=== PATIENT | male | born 1985 | race Caucasian/White ===

== ENCOUNTER 2016-08-16 11:00 | Inpatient (IN) | payer BC ==
[~2016-08-16] VITALS: Ht 182.9 cm; Wt 59.1 kg
--- NOTE | ~2016-08-16 | ECHO ---
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 Summary Technically difficult exam due to patient position and poor acoustical windows. The estimated left ventricular ejection fraction is 60-65%. Mild concentric left ventricular hypertrophy. Diastolic assessment appears to be normal relaxation. Procedure Type of Study TTE procedure:2D Echocardiogram, Echo Limited w/o Contrast. Procedure Date Date: 08/16/2016 Start: 12:05 PM Study Location: Inpatient Portable Technical Quality: Limited visualization due to poor acoustical window. Indications:Post Code. Appropriate Use Criteria: 9 Patient Status: STAT HR: 109 bpm BP: 153/106 mmHg M-Mode/2D Measurements LV Diastolic Dimension: 3.32 cm LV Systolic Dimension: 2.36 cm LV Septum Diastolic: 1.13 cm LV PW Diastolic: 1.03 cm AO Root Dimension: 2.3 cm LVOT VTI: 11.1 cm RV Base: 2.96 cm RV Mid: 2.57 cm RV Length: 5.22 cm Doppler Measurements AV Peak Velocity: 1.08 m/s MV Peak E-Wave: 0.64 m/s AV Peak Gradient: 4.67 mmHg MV Peak A-Wave: 0.59 m/s AV Mean Gradient: 3 mmHg MV E/A Ratio: 1.09 LVOT Peak Velocity: 0.77 m/s TR Velocity:1.22 m/s MV Deceleration Time: 137 msec TR Gradient:5.95 mmHg Estimated RAP:5 mmHg Estimated PASP: 10.95 mmHg Estimated RVSP: 11 mmHg A' Septal Velocity: 0.06 m/s E' Septal Velocity: 0.09 m/s A' Lateral Velocity: 0.06 m/s E' Lateral Velocity: 0.08 m/s Findings Left Ventricle Mild concentric left ventricular hypertrophy. Diastolic assessment appears to be normal relaxation. Right Ventricle Normal right ventricle structure and function. Left Atrium Left atrium appears normal in size Right Atrium Right atrium appears to be normal in size. IVC measures 1.18 cm with inspiratory collapse. Mitral Valve Normal appearing mitral valve structure and function. Aortic Valve Normal appearing aortic valve structure and function. Tricuspid Valve Normal appearing tricuspid valve. Trivial tricuspid regurgitation by color Doppler. Pulmonic Valve Pulmonic valve is not well seen. Pericardial Effusion No evidence of pericardial effusion. Miscellaneous Visualized portions of the aortic root and ascending aorta appear normal in size. Pleural Effusion No evidence of pleural effusion. Contractility Score LV regional wall motion:(0-Non visualized 1-Normal 2-Hypokinesis 3-Akinesis 4-Dyskinesis 5-Aneurysm) Signature dtt: Carmella Carias dtd: 08/16/16 5596 Physician Self Edit
--- NOTE | ~2016-08-16 | HP ---
PATIENT'S NAME: CINDY PACHECO [facility] AGE: 31 Y [address] ROOM: [place] [address] LOCATION: [facility] ADMIT DATE: 08/16/2016 History & Physical DISCHARGE DATE: 08/17/2016 FAMILY PHYSICIAN: EMY OZUNA ATTENDING PHYSICIAN: Johnathan Melton CORRECTED WORK TYPE 09/17/16 AO DATE OF SERVICE: 08/16/2016 REASON FOR CONSULTATION: Medical management while in the intensive care unit. HISTORY OF PRESENT ILLNESS: Mr. Pacheco is a 31-year-old gentleman, who presented after being from an outside hospital, after being found down at his workplace with reported hemoptysis, when 911 called and transported to his local hospital facility. There, at which time, the patient did have respiratory arrest and cardiac arrest where a CPR was begun. The patient had episodes of cardiac compression as well as defibrillation from his cardiac arrhythmias on multiple attempts including full array of ACLS drugs and given a large dose of a gram of Solu- Medrol for the patient's bronchoalveolar hemorrhage. The patient then was transported by [facility] to the [facility] for further evaluation and more definitive care. PAST MEDICAL HISTORY: Unable to be determined as the patient is unable to provide any history. SOCIAL HISTORY: Unable to determine. FAMILY HISTORY: Unable to determine. REVIEW OF SYSTEMS: Not able to determine. PHYSICAL EXAMINATION: GENERAL: The patient is intubated and sedated young man, appearing his stated age. NEUROLOGIC: The patient's pupils are dilated bilaterally, unreactive. The patient is intubated and unable to carry out a motor exam. HEART: Regular rate and rhythm. No murmurs, gallops, or rubs could be noted on exam. CHEST: His chest was coarse bilaterally. ABDOMEN: Soft, nontender, and nondistended. EXTREMITIES: Show no signs of clubbing, cyanosis, or edema. PATIENT'S NAME: CINDY PACHECO [facility] AGE: 31 Y [address] ROOM: [place] [address] LOCATION: GICU ADMIT DATE: 08/16/2016 History & Physical DISCHARGE DATE: 08/17/2016 FAMILY PHYSICIAN: EMY OZUNA ATTENDING PHYSICIAN: Geronimo,Johnathan A HEENT: Head normocephalic and atraumatic. Ears: TMs bilaterally noted. His uvula was midline with an endotracheal tube in place. IMPRESSION: This is a 31-year-old gentleman with; 1. Postcardiac arrest. 2. Acute hypoxemic respiratory failure. 3. Acute alveolar hemorrhage. 4. Diabetic ketoacidosis. 5. Increased intracerebral pressure. PLAN: Emergent consultation with Neurological Services, however, the patient's prognosis at this time appears to be grim given this patient's presentation postcardiac arrest, likely increased cerebral edema secondary to his diabetic ketoacidosis as well as anoxic brain injury. However, given his young age, I will emergently consult Neurologic Surgery as well as Teleneurology. The patient was also given IV mannitol as well as hypertonic saline boluses. Lastly, we will update the family, however, the patient is very unlikely to survive with poor prognosis. MD SYMONE SEGAL/win /[id number] CORRECTED WORK TYPE 09/17/16 AO D: [id number] T: [id number] HISTORY & PHYSICAL
--- NOTE | ~2016-08-16 | CON ---
PATIENT'S NAME: CINDY PACHECO [facility] AGE: 31 Y [address] ROOM: [place] [address] LOCATION: [facility] ADMIT DATE: 08/16/2016 Consultation DISCHARGE DATE: FAMILY PHYSICIAN: , UNKNOWN ATTENDING PHYSICIAN: JANEE SANCHEZ DATE OF CONSULTATION: 08/16/2016 REASON FOR CONSULTATION: Increased intracranial pressure. PATIENT IDENTIFICATION: Cindy Pacheco is a 31-year-old male. PRESENTING COMPLAINT: Decreased level of consciousness. HISTORY OF PRESENT ILLNESS: History was obtained from the patient's chart as the patient himself is unable to provide a history. According to the records, the patient was at work today. He started coughing up blood about 0815 hours. Shortly after that, he was walking and passed out. A co-worker caught him and placed him on the ground and 911 was called. By the time, the paramedics saw the patient, at 0820 hours, he was unresponsive and did not have a pulse or any breathing. They started CPR. His pupils were fixed and dilated at this time. The patient was transferred to [facility] for further treatment. He was seen initially by Dr. Sanchez and I was subsequently consulted to see the patient. PAST MEDICAL HISTORY: It appears the patient is a poorly-controlled diabetic type 1. SOCIAL HISTORY: The patient is and has children. He works at a [employer] facility. FAMILY HISTORY: There is no family history relevant to present symptoms. REVIEW OF SYSTEMS: Unable to carry out a review of systems as the patient is not responsive. PHYSICAL EXAMINATION: GENERAL: On examination, the patient is a young man who was seen in the ICU, PATIENT'S NAME: CINDY PACHECO [facility] AGE: 31 Y [address] ROOM: [place] [address] LOCATION: [facility] ADMIT DATE: 08/16/2016 Consultation DISCHARGE DATE: FAMILY PHYSICIAN: PHYSICIAN, UNKNOWN ATTENDING PHYSICIAN: JANEE SANCHEZ already intubated. NEUROLOGICAL: Pupils are dilated bilaterally and unreactive. The patient is intubated. Motor examination, unable to carry out. CARDIOVASCULAR: Heart sounds are present. RESPIRATORY: The patient is on a ventilator. EXTREMITIES: No cyanosis or clubbing. HEENT: His head is atraumatic. Eyes and ears: No evidence of trauma. REVIEW OF IMAGING STUDIES: The patient has had a head CT scan performed. A CT scan shows a very swollen brain with effacement of the basal cisterns and loss of terrell-white differentiation. There is no hemorrhage or tumor. IMPRESSION: A 31-year-old gentleman with history of type 1 diabetes, collapsed at work today. Imaging studies show evidence of increased intracranial pressure. MEDICAL DECISION MAKING: I spoke with the patient's family members and we discussed treatment options. The discussion included possible ventriculostomy to try and lower the patient's increased intracranial pressure, but there was no guarantee that this would help him. The patient's family opted for everything to be tried even though there were no guarantees. The patient was therefore taken to the operating room and had a ventriculostomy catheter placed. His care will be continued in the intensive care unit after the procedure. MD THANH DIXON/modl /[id number] d: 08/16/16 2247 t: 08/22/16 1555, CONSULTATION REPORT
--- NOTE | ~2016-08-16 | OR ---
PATIENT'S NAME: CINDY ARGUETA [facility] AGE: 31 Y [address] ROOM: [place] [address] LOCATION: [facility] ADMIT DATE: 08/16/2016 OR/Procedure Report DISCHARGE DATE: FAMILY PHYSICIAN: PHYSICIAN, UNKNOWN ATTENDING PHYSICIAN: JANEE SANCHEZ SURGEON: Raquel Aburto MD HOOP MAKER: Randa Gabriel. DATE OF PROCEDURE: 08/16/2016 PREOPERATIVE DIAGNOSIS: Increased intracranial pressure. POSTOPERATIVE DIAGNOSIS: Increased intracranial pressure. PROCEDURE PERFORMED: Placement of right-sided ventriculostomy for management of increased intracranial pressure. ANESTHESIA: General. ANESTHESIA PROVIDER: Janee Sanchez MD. HISTORY: The patient is a 31-year-old gentleman who collapsed while at work. He went into cardiac arrest and was resuscitated. His pulse came back. The patient, however, remained unresponsive. He was intubated and transferred to [facility]. Imaging studies showed extremely high pressure in his brain with loss of terrell-white differentiation and effacement of the basal cisterns. The patient is a known diabetic and his blood sugar was extremely high. We discussed the situation with the patient's family members and explained to them that the patient's intracranial pressure was very high. We mentioned the possibility of using a ventricular catheter to try and decrease intracranial pressure by draining of spinal fluid. We explained to the family members that there was no guarantee that this would help the situation and the patient may still be unresponsive even after the drain was placed. Family wished for us to try anything possible. With this in mind, the patient was scheduled for the procedure. I went over the benefits, risks, and alternatives with the family members. PROCEDURE IN DETAIL: In the operating room, the patient was placed in a supine position. He was already intubated, and anesthesia was induced. The hair was clipped over the right side of his scalp. The entry point for the ventriculostomy was marked out at 12.5 cm behind the right midpupillary line. The whole area was infiltrated with local anesthesia. The incision was opened with a #15 blade. Self-retaining retractor was placed. The twist drill was used to drill a hole through the skull. The dura was coagulated. The PATIENT'S NAME: CINDY ARGUETA [facility] AGE: 31 Y [address] ROOM: [address] [address] LOCATION: [facility] ADMIT DATE: 08/16/2016 OR/Procedure Report DISCHARGE DATE: FAMILY PHYSICIAN: PHYSICIAN, UNKNOWN ATTENDING PHYSICIAN: JANEE SANCHEZ A ventricular catheter was then tunneled under the scalp with a trocar. The catheter was brought out at the entry point. The catheter was inserted through the brain into the ventricles. Access was obtained at first try. Spinal fluid came out with a flash of pressure. It did not last very long and the fluid stopped flowing. I adjusted the catheter a few times, and there was no further flow. I noticed that the tip of the catheter was being filled up with brain material. The catheter was removed and flushed and I reinserted it. Once again, the catheter tip became rapidly closed with brain material. It would appear that the brain pressure was so high that it filled up the catheter tip and there was no way that CSF could come out. The monitor was used to measure the intracranial pressure, and we had anything between 70 and 90 cm of water on occasion. At this point, I felt that it was not possible to maintain any type of ventricular flow. The catheter was left in place. The incision was closed with appropriate suture materials. The catheter was secured to the scalp. A sterile dressing was applied. The patient was brought back to the intensive care for continued care. I have spoken with the family members and informed them that the brain pressure was so high that it is not possible for brain cells to survive since the blood flow to the brain cannot overcome such a high intracranial pressure. MD CHACHA DIXONO/modl /[id number] d: 08/16/162229 t: 08/22/16 1552, OPERATIVE SUMMARY
--- NOTE | ~2016-08-16 | DS ---
PATIENT'S NAME: CINDY ARGUETA [facility] AGE: 31 Y [address] ROOM: [place] [address] LOCATION: GICU ADMIT DATE: 08/16/2016 Discharge Summary DISCHARGE DATE: 08/17/2016 FAMILY PHYSICIAN: EMY OZUNA ATTENDING PHYSICIAN: Johnathan Melton CORRECTED WORK TYPE 09/17/16 AO NOTE. CONSULTATIONS: 1. Tele Neurology. 2. Neurosurgery. BRIEF HOSPITAL COURSE: The patient is a 31-year-old gentleman, who presented from an outside hospital after extensive CPR after being found down at work and with respiratory cardiac arrest. He was transported to [facility] for more definitive care. On his presentation here, the patient with fixed and dilated pupils and an essentially nonresponsive neurologic exam. He was taken to the operating room, where a ventriculostomy was placed by Neurosurgery. The patient was found to have significantly elevated intracranial pressures, not compatible with life. The patient was taken back to the ICU overnight, and a exam was performed in the morning. Following the brain- exam, the patient was found to be brain with time of at 12:59 p.m. on 08/17/2016. The patient was withdrawn from the ventilator as well as all his ICU intravenous medications and the patient after cardiac standstill was taken for autopsy by central pathology services. PRELIMINARY DIAGNOSES: 1. Bilateral pulmonary cavitary lesions with extensive associated hemorrhage and consolidation of the right lung. 2. History of cerebral edema. FINAL DIAGNOSES: 1. Anoxic brain injury. 2. Bronchioalveolar hemorrhage. 3. Diabetes mellitus, type 1. 4. Diabetic ketoacidosis. 5. Increased intracerebral hypertension. MD SYMONE SEGAL/win PATIENT'S NAME: CINDY ARGUETA [facility] AGE: 31 Y [address] ROOM: [place] [address] LOCATION: GICU ADMIT DATE: 08/16/2016 Discharge Summary DISCHARGE DATE: 08/17/2016 FAMILY PHYSICIAN: EMY OZUNA ATTENDING PHYSICIAN: Johnathan Melton /[id number] CORRECTED WORK TYPE 09/17/16 AO d: 09/13/16 2301 t: 10/02/16 1436, DISCHARGE SUMMARY
[2016-08-16 13:04] LABS: HEMATOCRIT 34.9 % (37.0-53.0); HEMOGLOBIN 11.1 g/dL (12.0-17.0); MCH 28.8 pg (27.0-34.0); MCHC 31.8 gm/dL (32.0-36.5); MCV 90.6 fl (83.0-98.0); MPV 8.5 fl (9.4-12.4); PLATELET COUNT 705 K/uL (150-450); RBC 3.85 M/uL (4.00-6.00); RDW-CV 12.7 % (11.9-14.6)
[2016-08-16 13:13] LABS: WBC 20.3 K/uL (4.0-11.0)
[2016-08-16 13:31] LABS: ALT 223 IU/L (12-78); BLOOD UREA NITROGEN 16 mg/dL (6-24); CALCIUM 7.6 mg/dL (8.5-10.5); CHLORIDE 103 mMol/L (96-110); ESTIMATED GFR (MDRD EQUATION) > 60; PHOSPHORUS 7.2 mg/dL (2.5-4.9); SODIUM 137 mMol/L (135-145); TOTAL BILIRUBIN 1.3 mg/dL (0.0-1.5); TOTAL PROTEIN 7.1 g/dL (6.0-8.4)
[2016-08-16 13:34] LABS: ANION GAP 23.2 (10.0-19.0); CO2 15 mMol/L (22-32)
[2016-08-16 13:35] LABS: ALK PHOS 908 IU/L (33-138); AST 645 IU/L (10-40); CPK 394 IU/L (35-332); MAGNESIUM 2.3 mg/dL (1.3-2.6)
[2016-08-16 13:37] LABS: BICARBONATE 18.1 mmol/L (18.0-23.0); PCO2 52 mmHg (35-45); PO2 293 mmHg (80-90)
[2016-08-16 13:44] LABS: POTASSIUM 4.2 mMol/L (3.7-5.1)
[2016-08-16 13:45] LABS: ABSOLUTE NEUTROPHIL CT (ANC) 17.7 K/uL (1.4-9.0); BANDED NEUTROPHIL # 3.5 K/uL (0.0-0.1); BANDED NEUTROPHILS % 17 %; LYMPHOCYTE % 10 %; MONOCYTE # 0.4 K/uL (0.0-1.0); SEGMENTED NEUTROPHIL # 14.2 K/uL (1.4-9.0); SEGMENTED NEUTROPHIL % 70 %
[2016-08-16 13:55] LABS: BILIRUBIN URINE NEGATIVE (NEGATIVE); BLOOD URINE 150 /UL (NEGATIVE); COLOR URINE YELLOW (YELLOW); GLUCOSE URINE 1000 mg/dL (NEGATIVE); KETONE URINE NEGATIVE (NEGATIVE); LEUKOCYTES URINE NEGATIVE /UL (NEGATIVE); NITRITE URINE NEGATIVE (NEGATIVE); PROTEIN URINE 30 mg/dL (NEGATIVE); TURBIDITY URINE CLEAR (CLEAR); UROBILINOGEN URINE NORMAL (NORMAL)
[2016-08-16 13:57] LABS: EPITHELIAL URINE NEGATIVE #/HPF (NEGATIVE); RBC URINE 20-50 #/HPF (NEGATIVE); WBC URINE NEGATIVE #/HPF (NEGATIVE)
[2016-08-16 13:58] LABS: BACTERIA URINE NEGATIVE (NEGATIVE)
[2016-08-16 14:11] LABS: AMPHETAMINE NEGATIVE (NEGATIVE); BARBITURATE NEGATIVE (NEGATIVE); COCAINE NEGATIVE (NEGATIVE); OPIATES NEGATIVE (NEGATIVE)
[2016-08-16] MEDS ORDERED: LEXAPRO10 MG PO (15:06)
[2016-08-16] MEDS ORDERED: K-TAB 10MEQ10 MEQ PO (15:06)
[2016-08-16] MEDS ORDERED: PROVENTIL OR V6.7 GM INH (15:07)
[2016-08-16] MEDS ORDERED: LANTUS (IN100 UNIT/M SUB-Q (15:08)
[2016-08-16] MEDS ORDERED: HUMALOG100 UNIT/1 SUB-Q (15:09)
[2016-08-16 16:11] LABS: BLOOD UREA NITROGEN 18 mg/dL (6-24); CALCIUM 7.6 mg/dL (8.5-10.5); CHLORIDE 113 mMol/L (96-110); CO2 19 mMol/L (22-32); CREATININE 0.9 mg/dL (0.6-1.3); ESTIMATED GFR (MDRD EQUATION) > 60
[2016-08-16 16:13] LABS: SODIUM 145 mMol/L (135-145)
[2016-08-16 17:35] LABS: BLOOD UREA NITROGEN 17 mg/dL (6-24); CALCIUM 7.5 mg/dL (8.5-10.5); CO2 22 mMol/L (22-32); ESTIMATED GFR (MDRD EQUATION) > 60; POTASSIUM 4.5 mMol/L (3.7-5.1)
[2016-08-16 17:40] LABS: ANION GAP 13.5 (10.0-19.0); CHLORIDE 124 mMol/L (96-110); SODIUM 155 mMol/L (135-145)
--- NOTE | 2016-08-16 19:03 | NUR ---
Significant Event: Patient admitted at 1204. Intubated without sedation. No withdraw in any extremity. No gag or spontaneous cough noted. Pupils are 5 and fixed. Overbreathes set vent rate at times. ST with HR 150's. SBP 90's-140's. Levophed gtt started during surgery and turned off at 1730. To keep Map >65. Went to CT today and then to OR for ICP/ventric placement. ICP's in surgery reported to be 80-90's. Post op ICP's have been 50-80's. CPP 18-25. OG tube placed, dark bloody drainage output when first admitted. And dark blood tinged drainage from nostrils when first admitted. Hypoactive bowel sounds on last assessment. NPO. Afebrile. IV insulin gtt, goal to decrease blood sugar 50-100/h til goal of 250. hourly accuchecks.NORS has been notified. Follow up: Waiting on family to make decisions on patients plan of care. monitor bmp q2h
[2016-08-16 20:06] LABS: BLOOD UREA NITROGEN 16 mg/dL (6-24); CALCIUM 7.6 mg/dL (8.5-10.5); CO2 22 mMol/L (22-32); ESTIMATED GFR (MDRD EQUATION) > 60; POTASSIUM 4.9 mMol/L (3.7-5.1)
[2016-08-16 20:07] LABS: ANION GAP 12.9 (10.0-19.0); CHLORIDE 130 mMol/L (96-110); SODIUM 160 mMol/L (135-145)
[2016-08-16 21:30] LABS: BLOOD UREA NITROGEN 16 mg/dL (6-24); CALCIUM 8.1 mg/dL (8.5-10.5); CO2 20 mMol/L (22-32); CREATININE 1.1 mg/dL (0.6-1.3); ESTIMATED GFR (MDRD EQUATION) > 60; POTASSIUM 4.9 mMol/L (3.7-5.1)
[2016-08-16 21:34] LABS: ANION GAP 14.9 (10.0-19.0); CHLORIDE 133 mMol/L (96-110); SODIUM 163 mMol/L (135-145)
[2016-08-17 02:21] LABS: BLOOD UREA NITROGEN 16 mg/dL (6-24); CALCIUM 8.4 mg/dL (8.5-10.5); CO2 20 mMol/L (22-32); CREATININE 0.9 mg/dL (0.6-1.3); ESTIMATED GFR (MDRD EQUATION) > 60
[2016-08-17 02:27] LABS: CHLORIDE 131 mMol/L (96-110); SODIUM 162 mMol/L (135-145)
[2016-08-17 05:18] LABS: BICARBONATE 21.6 mmol/L (18.0-23.0); PCO2 47 mmHg (35-45); PO2 87 mmHg (80-90)
--- NOTE | 2016-08-17 05:21 | NUR ---
Patient has been weaned from an FIO2 of 100% down to an FIO2 of 40%. End tidal has ran 30-42. He is breathing along with the vent with no over breathing noted. Breath sounds are coarse through out with moderate amounts of thick, bloody secretions being suctioned out. Still coarse after suctioning. Will continue to monitor patient.
[2016-08-17 05:39] LABS: ALT 138 IU/L (12-78); AST 114 IU/L (10-40); BLOOD UREA NITROGEN 17 mg/dL (6-24); CALCIUM 7.6 mg/dL (8.5-10.5); CO2 22 mMol/L (22-32); CREATININE 0.7 mg/dL (0.6-1.3); ESTIMATED GFR (MDRD EQUATION) > 60; MAGNESIUM 1.9 mg/dL (1.3-2.6); PHOSPHORUS 3.3 mg/dL (2.5-4.9); POTASSIUM 3.9 mMol/L (3.7-5.1); TOTAL PROTEIN 5.6 g/dL (6.0-8.4)
[2016-08-17 05:41] LABS: ALBUMIN 1.6 gm/dL (3.5-5.0); ALK PHOS 414 IU/L (33-138); ANION GAP 10.9 (10.0-19.0); CHLORIDE 129 mMol/L (96-110); SODIUM 158 mMol/L (135-145); TOTAL BILIRUBIN 0.3 mg/dL (0.0-1.5)
[2016-08-17 05:44] LABS: HEMOGLOBIN 8.3 g/dL (12.0-17.0); MCV 91.9 fl (83.0-98.0); MPV 8.5 fl (9.4-12.4); RDW-CV 13.3 % (11.9-14.6)
[2016-08-17 05:49] LABS: HEMATOCRIT 26.1 % (37.0-53.0); MCH 29.2 pg (27.0-34.0); MCHC 31.8 gm/dL (32.0-36.5); PLATELET COUNT 429 K/uL (150-450); RBC 2.84 M/uL (4.00-6.00)
--- NOTE | 2016-08-17 05:52 | NUR ---
Significant Event: See neuro assessment for details. ST, BP labile with levophed as high at 0.8mcg/kg/min this shift, currently at 0.2mcg/kg/min. HR 100-155. Lung sounds coarse, does not overbreathe set rate. No cough present. Bowel sounds rare, OG hooked to flush for q4h flushes. Suazo intact, polyuric. No new or worsening skin issues. ICP 75 and greater. Afebrile. Follow up:Brain testing today.
[2016-08-17 07:30] LABS: ABSOLUTE NEUTROPHIL CT (ANC) 20.7 K/uL (1.4-9.0); BANDED NEUTROPHIL # 10.8 K/uL (0.0-0.1); BANDED NEUTROPHILS % 49 %; LYMPHOCYTE # 0.9 K/uL (0.8-4.0); LYMPHOCYTE % 4 %; MONOCYTE # 0.4 K/uL (0.0-1.0); SEGMENTED NEUTROPHIL # 9.9 K/uL (1.4-9.0); SEGMENTED NEUTROPHIL % 45 %
[2016-08-17 07:51] LABS: BLOOD UREA NITROGEN 19 mg/dL (6-24); CALCIUM 7.5 mg/dL (8.5-10.5); CO2 22 mMol/L (22-32); CREATININE 0.7 mg/dL (0.6-1.3); ESTIMATED GFR (MDRD EQUATION) > 60; POTASSIUM 3.9 mMol/L (3.7-5.1)
[2016-08-17 07:52] LABS: ANION GAP 11.9 (10.0-19.0); CHLORIDE 125 mMol/L (96-110); SODIUM 155 mMol/L (135-145)
--- NOTE | 2016-08-17 09:42 | NUR ---
Diabetes consult: Received referral on this patient due to his admission with DKA and poorly controlled diabetes. Currently blood sugars are well controlled on the insulin drip. Patient is critical at this point. Will continue to follow blood sugars trends and assist as needed.
--- NOTE | 2016-08-17 12:29 | NUR ---
DIET CONSULT RECEIVED, PER ROUTINE DIABETIC KETOACIDOSIS ORDERS. DIET ED DEFERRED D/T CURRENT MEDICAL STATUS.
[2016-08-17 12:50] LABS: BICARBONATE 22.2 mmol/L (18.0-23.0); PCO2 35 mmHg (35-45); PO2 365 mmHg (80-90)
--- NOTE | 2016-08-17 12:55 | NUR ---
Occupational Therapy Note: OT to hold therapy at this date as pt is not appropriate at this time per RN. OT will check back tomorrow as appropriate. Darlyn Galvan, OTR/L
[2016-08-17 13:09] LABS: BICARBONATE 25.4 mmol/L (18.0-23.0); PO2 358 mmHg (80-90)
[2016-08-17 13:12] LABS: PCO2 80 mmHg (35-45)
--- NOTE | 2016-08-17 13:47 | NUR ---
Pt extubated to comfort cares at 1335 to room air
--- NOTE | 2016-08-17 14:01 | NUR ---
Call from pipe assembly worker Brian on ICU with questions re:family wanting to have an autopsy done on Goran after he passes away. I came down to the floor, CLAIRE Vanessa was by his room and gave me verbal update on the patient. They are planning to go brain testing at 1200. If the prognosis isn't good, then family is planning to withdraw cares at that time. Scotty and nursing were wanting to know, if family was requesting the autopsy, would they have to pay for it. I went back and reviewed [facility] policy on autopsy requests, I referred to policystat ID [id number]. Per this policy, "There is no charge by the hospital or the pathologist for an autopsy performed on hospitalized and/or on arrival (doa) patients that are ordered by primary physicians and/or the projector booth operator. 1. If the family/next of kin asks for an autopsy after the primary physician or projector booth operator has indicated no desire to autopsy, a charge will be assesed." I printed this out and left a copy of it with the primary care RN and also reviewed it with all parties involved. I did call down to Lab, talked with Harshal, just to check on how much it would be if MD wouldn't think it was needed so I could share this with family, but before I was told the minor, RN informed me that MD would be ordering it so family shouldn't be responsible for the cost of it. I also phoned boiling house oiler, Sadaf, to make sure that Bernard' local patent examiner didn't need to be notified of his . Per Sadaf, if there was no foul play or reason to think that it was suspicious then we didn't need to notify his projector booth operator. I updated primary care RN, pipe assembly worker Brian and CLAIRE Vanessa to all of the above. Let them know if they had any further questions, to please contact me and I would be happy to help them out. Will contiue to follow and assist.
--- NOTE | 2016-08-17 14:40 | NUR ---
Significant Event:NORS had family meeting this morning and family declined oragn donation. Father stated that he had conversations with the patient egarding donation and patient stated that he did not want to do it. Dr Chandler at bedside at 1235 and performed the brain criteria assessement with family at the bedside.Assessment was done at approximately 1258. Brain was pronounced 08/17/16 at 1259, Dr. Chandler notified family. Family spent some time at bedside and then notified us at 1325 that they were ready for the withdrawl process. AT 1330 Darinel, RT, Elsa RN and Rasheeda RN were at bedside, just all IV medications off, ICP monitor off,ventilator shut off and ET tube pulled. AT 1350 telemetry notified of asystole. Elsa RN and Rasheeda RN verified no heartbeat/pulse. Patient did not have any belonings at bedside. See brain form and DR. Chandler notes/orders. DR chandler did order for autopsy. home notified of autopsy,donavan [facility] home in [facility], at [phone] Follow up:
== END 2016-08-17 12:59 | disposition expired | DRG 981 ==
LOC: GICU 11:00
PROVIDERS: ADMIT Anesthesiology Critical Care Medicine
DX: E10.10 Type 1 diabetes mellitus with ketoacidosis without coma (principal); G93.6 Cerebral edema; J96.01 Acute respiratory failure with hypoxia; J18.1 Lobar pneumonia, unspecified organism; I95.9 Hypotension, unspecified; G93.2 Benign intracranial hypertension; Z79.4 Long term (current) use of insulin
CPT/HCPCS: C9113; J0610; J2185; J3010; J3370; J3480; J7030; J7040; J7050; J7060